=== PATIENT | male | born 1960 | race Native Hawaiian/Other Pacific Islander ===

== ENCOUNTER 2019-11-12 13:25 | Outpatient (CLI) | payer OTHER | END 2019-11-12 23:32 | disposition home or self-care (01) | LOC: CT 13:25 | DX: K43.2 Incisional hernia without obstruction or gangrene (principal) | CPT/HCPCS: 36415; 82565; 84520 ==

== ENCOUNTER 2020-01-24 13:21 | Emergency (ER) | payer OTHER ==
[~2020-01-24] VITALS: Ht 182.9 cm; Wt 106.6 kg
[2020-01-24 14:47] LABS: PLATELET COUNT 251 K/uL (142-355)
[2020-01-24 14:51] LABS: SODIUM 139 mmol/L (136-145)
[2020-01-24 16:20] VITALS: BP 131/87; TEMP 97.6
== END 2020-01-24 16:20 | disposition home or self-care (01) ==
LOC: ED 13:21
PROVIDERS: Emergency Medicine Emergency Medical Services
DX: J20.9 Acute bronchitis, unspecified (principal); Z20.828 Contact with and (suspected) exposure to other viral communicable diseases; F17.210 Nicotine dependence, cigarettes, uncomplicated
CPT/HCPCS: 80053; 84484; 85027; 87635; 93005; 96372; 99283; 99284; J1100; U0003